=== PATIENT | female | born 1960 | race Caucasian/White ===

== ENCOUNTER 2017-03-17 11:03 | Observation (INO) | payer OTHER ==
--- NOTE | 2017-03-17 11:26 | ED PDOC ---
Arrival/HPI - General Historian: Patient - History of Present Illness Time/Duration: 1 week Symptom Onset: Gradual Symptom Course: Unchanged Quality: Aching, Pressure Severity Level: 7 Activities at Onset: Rest Context: Home <Alana Lubin - Last Filed: 03/17/17 14:10> <Mckenna Villa - Last Filed: 03/17/17 14:43> - General Chief Complaint: Chest Pain Time Seen by Provider: 03/17/17 11:08 - History of Present Illness Narrative History of Present Illness (Text): 03/17/17 11:27 This is a 57Y F with PMH of HTN, kidney stones, CAD s/p stents in 2015, and GERD who came to ED for chest pain x 1 week. She reports she was sitting at home when she began to have substernal chest pain. It is intermittent, but severe when it comes. It radiates to the R side of her chest. She does not know what makes it better or worse. She denies having any SOB, vision changes, numbness/tingling, headache, fever or chills. As per her daughter, she went to [facility] for 1 year and did not follow up with cardiology. She only follows up with her PMD as needed. The patient also complains of R sided back pain for the past week which has also been on and off and not associated with her chest pain. She thinks she has a kidney stone but denies dysuria, hematuria or urinary frequency. (Alana Lubin) Past Medical History - Provider Review Nursing Documentation Reviewed: Yes - Tetanus Immunization Tetanus Immunization: Unknown - Cardiac Hx Hypertension: Yes - Hematological/Oncological Hx Blood Transfusions: Yes Hx Blood Transfusion Reaction: No - Musculoskeletal/Rheumatological Hx Falls: No - Psychiatric Hx Substance Use: No - Past Surgical History Past Surgical History: Unable to Obtain - Anesthesia Hx Anesthesia Reactions: No Hx Malignant Hyperthermia: No - Suicidal Assessment Feels Threatened In Home Enviroment: No <Alana Lubin - Last Filed: 03/17/17 14:10> Family/Social History - Physician Review Nursing Documentation Reviewed: Yes Family/Social History: Hypertension Smoking Status: Never Smoked Hx Alcohol Use: No Hx Substance Use: No <Alana Lubin - Last Filed: 03/17/17 14:10> Allergies/Home Meds <Alana Lubin - Last Filed: 03/17/17 14:10> <Mckenna Villa - Last Filed: 03/17/17 14:43> Allergies/Adverse Reactions: Allergies No Known Allergies Allergy (Verified 03/17/17 11:22) Home Medications: Home Meds Medication Instructions Recorded Confirmed Naproxen [Naprosyn] 500 mg PO PRN PRN 03/17/17 03/17/17 Pantoprazole Sodium [Protonix] 40 mg PO DAILY 03/17/17 03/17/17 amLODIPine [Norvasc] 5 mg PO DAILY 03/17/17 03/17/17 raNITIdine [Zantac Soln 5ml] 15 mg PO BID 03/17/17 03/17/17 Review of Systems - Physician Review All systems were reviewed & negative as marked: Yes - Review of Systems Constitutional: Normal. absent: Fevers Eyes: Normal. absent: Vision Changes Respiratory: Normal. absent: SOB, Cough, Sputum Cardiovascular: Chest Pain. absent: Palpitations, Edema Gastrointestinal: Normal. absent: Abdominal Pain, Constipation, Diarrhea, Nausea, Vomiting Genitourinary Female: Normal. absent: Dysuria, Frequency, Hematuria Musculoskeletal: Back Pain Skin: Normal. absent: Rash, Pruritis Neurological: Normal. absent: Headache, Dizziness Endocrine: Normal. absent: Diaphoresis, Polyuria, Polydipsia Psychiatric: Normal. absent: Anxiety, Depression <Alana Lubin - Last Filed: 03/17/17 14:10> Physical Exam Vital Signs Reviewed: Yes Temperature: Afebrile Blood Pressure: Normal Pulse: Regular Respiratory Rate: Normal Appearance: Positive for: Well-Appearing, Non-Toxic, Comfortable Pain Distress: None Mental Status: Positive for: Alert and Oriented X 3 - Systems Exam Head: Present: Atraumatic, Normocephalic Pupils: Present: PERRL Extroacular Muscles: Present: EOMI Conjunctiva: Present: Normal Mouth: Present: Moist Mucous Membranes Neck: Present: Normal Range of Motion Respiratory/Chest: Present: Clear to Auscultation, Good Air Exchange. No: Respiratory Distress, Accessory Muscle Use Cardiovascular: Present: Regular Rate and Rhythm, Normal S1, S2. No: Murmurs Abdomen: Present: Normal Bowel Sounds. No: Tenderness, Distention, Peritoneal Signs Back: Present: Normal Inspection Upper Extremity: Present: Normal Inspection. No: Cyanosis, Edema Lower Extremity: Present: Normal Inspection. No: Edema Neurological: Present: GCS=15, CN II-XII Intact, Speech Normal Skin: Present: Warm, Dry, Normal Color. No: Rashes Psychiatric: Present: Alert, Oriented x 3, Normal Insight, Normal Concentration <Natepedro luisAlana gary - Last Filed: 03/17/17 14:10> <Mckenna Villa - Last Filed: 03/17/17 14:43> Vital Signs Temp Pulse Resp BP Pulse Ox 03/17/17 13:03 82 18 140/87 100 03/17/17 11:03 98.2 F 80 18 143/90 94 L Medical Decision Making Re-evaluation Time: 12:35 Reassessment Condition: Unchanged - Lab Interpretations I have reviewed the lab results: Yes Interpretation: Abnormal lab values (U/A positive for blood) - EKG Interpretation Interpreted by ED Physician: Yes Type: 12 lead EKG Comparison: Similar to previous EKG <Alana Lubin - Last Filed: 03/17/17 14:10> <Mckenna Villa Clementina - Last Filed: 03/17/17 14:43> ED Course and Treatment: 03/17/17 11:35 Impression: DDX: chest pain r/o ACS. back pain r/o kidney stone Plan: -- EKG -- ASA -- CXR -- CBC, CMP, Cardiac ISO, U/A -- Reassess and disposition Prior Visits: Notes and results from previous visits were reviewed. Progress Note: 03/17/17 11:47 CXR Impression: no pneumothorax, no cardiomegaly, no infiltrates EKG: Ordered, reviewed, and independently interpreted the EKG. Time Interpreted: 11:35 Rate: 76 BPM Rhythm: NSR Interpretation: No ST-segment elevations or depressions, no T-wave inversions, normal intervals. Comparison: Similar to previous EKG 03/17/17 12:36 CBC, CMP and troponin within normal limits. Patient noted to have positive U/A for blood. Will obtain CT abd/pelvis w/o contrast to r/o obstructing stone. 03/17/17 13:51 CT Abdomen and Pelvis without intravenous contrast HISTORY: R flank pain COMPARISON: None FINDINGS: LOWER THORAX: Unremarkable. LIVER: Unremarkable. No gross lesion or ductal dilatation. GALLBLADDER AND BILE DUCTS: Unremarkable. PANCREAS: Unremarkable. No gross lesion or ductal dilatation. SPLEEN: Unremarkable. ADRENALS: Unremarkable. No mass. KIDNEYS AND URETERS: Right lower pole renal calculus measuring 9 millimeters as well as additional punctate 1 millimeter calculus. Left lower pole renal cyst measuring 2.5 centimeters. VASCULATURE: Unremarkable. No aortic aneurysm. BOWEL: Unremarkable. No obstruction. No gross mural thickening. APPENDIX: Unremarkable. Normal appendix. PERITONEUM: Unremarkable. No free fluid. No free air. LYMPH NODES: Unremarkable. No enlarged lymph nodes. BLADDER: Unremarkable. REPRODUCTIVE: Unremarkable. BONES: No acute fracture. OTHER FINDINGS: 8 centimeter left lower quadrant cyst possibly representing a duplication cyst. IMPRESSION: Right lower pole renal calculus measuring 9 millimeters as well as additional punctate 1 millimeter calculus. Left lower pole renal cyst measuring 2.5 centimeters. No hydronephrosis.8 centimeter left lower quadrant cyst possibly representing a duplication cyst. 03/17/17 13:53 Patient will admitted to hospitalist service for chest pain r/o ACS and kidney stones. Spoke with Dr. Sherry Herman who accepted the patient into her service. (Alana Lubin) A 57 year old female with chest and back pain. In agreement with resident note, which includes further HPI details. Patient was seen and evaluated with resident , came up with plan and treatment together. Results as above. Spoke to hospitalist and will be transfered to tele observation for chest pain. (Mckenna Villa) - Lab Interpretations Lab Results: 03/17/17 11:15 03/17/17 11:17 Lab Results 03/17/17 11:44: Urine Color Yellow, Urine Appearance Sl cloudy, Urine pH 5.5, Ur Specific Freer >= 1.030, Urine Protein Negative, Urine Glucose (UA) Negative, Urine Ketones Negative, Urine Blood Large H, Urine Nitrate Negative, Urine Bilirubin Negative, Urine Urobilinogen 0.2, Ur Leukocyte Esterase Negative , Urine RBC Tntc, Urine WBC 0 - 2, Ur Epithelial Cells 4 - 5, Urine Bacteria Trace 03/17/17 11:17: Sodium 143, Potassium 3.7, Chloride 106, Carbon Dioxide 28, Anion Gap 13, BUN 19, Creatinine 0.8, Est GFR ( Amer) > 60, Est GFR (Non- Af Amer) > 60, Random Glucose 113 H, Calcium 10.0, Total Bilirubin 0.5, AST 29, ALT 28, Alkaline Phosphatase 97, Lactate Dehydrogenase 534, Total Creatine Kinase 81, Troponin I < 0.01 D, Total Protein 7.6, Albumin 4.2, Globulin 3.5, Albumin/Globulin Ratio 1.2 03/17/17 11:15: WBC 6.0, RBC 4.75, Hgb 13.8, Hct 41.5, MCV 87.4, MCH 29.1, MCHC 33.3, RDW 15.6 H, Plt Count 256, MPV 11.3 H - RAD Interpretation Radiology Orders: 03/17/17 11:23 CHEST PORTABLE [RAD] Stat 03/17/17 12:08 ABD & PELVIS W/O PO OR IV CONT [CT] Stat - Medication Orders Current Medication Orders: Discontinued Medications Aspirin (Ecotrin) 325 mg PO STAT STA Stop: 03/17/17 11:34 Last Admin: 03/17/17 11:58 Dose: 325 mg <Alana Lubin - Last Filed: 03/17/17 14:10> - PA / POLICY CHANGE CLERK / Resident Statement MD/DO has reviewed & agrees with the documentation as recorded. MD/DO has examined the patient and agrees with the treatment plan. - Scribe Statement The provider has reviewed the documentation as recorded by the Scribe <Mckenna Villa - Last Filed: 03/17/17 14:43> - Scribe Statement Irena Warner Provider Scribe Attestation: All medical record entries made by the Scribe were at my direction and personally dictated by me. I have reviewed the chart and agree that the record accurately reflects my personal performance of the history, physical exam, medical decision making, and the department course for this patient. I have also personally directed, reviewed, and agree with the discharge instructions and disposition. (Mckenna Villa) Disposition/Present on Arrival - Present on Arrival Any Indicators Present on Arrival: No History of DVT/PE: No History of Uncontrolled Diabetes: No Urinary Catheter: No History Surgical Site Infection Following: None - Disposition Have Diagnosis and Disposition been Completed?: Yes Disposition Time: 13:45 Patient Plan: Admission <Alana Lubin - Last Filed: 03/17/17 14:10> <Mckenna Villa - Last Filed: 03/17/17 14:43> - Disposition Diagnosis: Chest pain, Kidney stone Patient Problems: Current Active Problems Problem Status Onset Chest pain Acute Kidney stone Acute Condition: FAIR
[2017-03-17] MEDS ORDERED: Aspirin 325 mg EC Tablets PO STA (11:33)
[2017-03-17 11:34] LABS: HEMATOCRIT 41.5 % (36.0-48.0); MEAN CELL VOLUME 87.4 fl (80.0-105.0); MEAN CORPUSCULAR HEMOGLOBIN 29.1 pg (25.0-35.0); MEAN CORPUSCULAR HGB CONC 33.3 g/dl (31.0-37.0); MEAN PLATELET VOLUME 11.3 fl (7.0-11.0); RED CELL DISTRIBUTION WIDTH 15.6 % (11.5-14.5)
[2017-03-17 11:45] LABS: ALB/GLOB RATIO 1.2 (1.1-1.8); ALKALINE PHOSPHATASE 97 U/L (38-126); ALT/SGPT 28 U/L (7-56); AST/SGOT 29 U/L (14-36); BILIRUBIN,TOTAL 0.5 mg/dL (0.2-1.3); BLOOD UREA NITROGEN 19 mg/dL (7-21); CARBON DIOXIDE 28 mmol/L (21-33); CHLORIDE 106 mmol/L (98-107); GFR AFRICAN-AMERICAN > 60; GLUCOSE,RANDOM 113 mg/dL (70-110); SODIUM 143 mmol/L (132-148); TOTAL PROTEIN 7.6 g/dL (5.8-8.3)
[2017-03-17 12:00] LABS: TROPONIN I < 0.01 ng/mL
[2017-03-17 12:01] LABS: POTASSIUM 3.7 mmol/L (3.6-5.0)
[2017-03-17 12:02] LABS: PH,URINE 5.5 (4.7-8.0); URINE BILIRUBIN NEGATIVE (NEGATIVE); URINE BLOOD LARGE (NEGATIVE); URINE GLUCOSE (UA) NEGATIVE (NEGATIVE); URINE KETONE NEGATIVE (NEGATIVE); URINE LEUKOCYTE ESTERASE NEGATIVE Leu/uL (NEGATIVE); URINE PROTEIN NEGATIVE mg/dL (<30 mg/dL); URINE UROBILINOGEN 0.2 E.U./dL (<1 E.U./dL)
[2017-03-17 12:03] LABS: URINE APPEARANCE SL CLOUDY (CLEAR); URINE COLOR YELLOW (YELLOW)
[2017-03-17 12:04] LABS: URINE BACTERIA TRACE (NEG); URINE RBC TNTC /hpf (0-2); URINE WBC 0 - 2 /hpf (0-6)
--- NOTE | 2017-03-17 13:44 | CT ---
PROCEDURE: CT Abdomen and Pelvis without intravenous contrast HISTORY: R flank pain COMPARISON: None. TECHNIQUE: Technique. Contrast Dose: Radiation dose: Total exam DLP = mGy-cm. This CT exam was performed using one or more of the following dose reduction techniques: Automated exposure control, adjustment of the mA and/or kV according to patient size, and/or use of iterative reconstruction technique. FINDINGS: LOWER THORAX: Unremarkable. LIVER: Unremarkable. No gross lesion or ductal dilatation. GALLBLADDER AND BILE DUCTS: Unremarkable. PANCREAS: Unremarkable. No gross lesion or ductal dilatation. SPLEEN: Unremarkable. ADRENALS: Unremarkable. No mass. KIDNEYS AND URETERS: Right lower pole renal calculus measuring 9 millimeters as well as additional punctate 1 millimeter calculus. Left lower pole renal cyst measuring 2.5 centimeters. VASCULATURE: Unremarkable. No aortic aneurysm. BOWEL: Unremarkable. No obstruction. No gross mural thickening. APPENDIX: Unremarkable. Normal appendix. PERITONEUM: Unremarkable. No free fluid. No free air. LYMPH NODES: Unremarkable. No enlarged lymph nodes. BLADDER: Unremarkable. REPRODUCTIVE: Unremarkable. BONES: No acute fracture. OTHER FINDINGS: 8 centimeter left lower quadrant cyst possibly representing a duplication cyst. IMPRESSION: Right lower pole renal calculus measuring 9 millimeters as well as additional punctate 1 millimeter calculus. Left lower pole renal cyst measuring 2.5 centimeters. No hydronephrosis.8 centimeter left lower quadrant cyst possibly representing a duplication cyst.
--- NOTE | 2017-03-17 14:06 | RAD ---
HISTORY: Chest pain COMPARISON: 11/23/2014. FINDINGS: LUNGS: The lungs are well inflated and clear. PLEURA: No significant pleural effusion identified, no pneumothorax apparent. CARDIOVASCULAR: Normal. OSSEOUS STRUCTURES: No significant abnormalities. VISUALIZED UPPER ABDOMEN: Normal. OTHER FINDINGS: None. IMPRESSION: No active pulmonary disease.
--- NOTE | 2017-03-17 16:49 | CP.PCM.HP ---
<Jennifer Villalobos - Last Filed: 03/17/17 17:32> History of Present Illness - History of Present Illness History of Present Illness: PGY-2 H&P 57 yo female with PMH of HTN, kidney stones, CAD s/p stents in 2014, and GERD who came to ED for chest pain for the past 1 week. She reports she was sitting at home when she began to have substernal chest pain. She describes the pain as intermittent, but severe when it comes. It radiates to the right side of her chest down to her abdomen. She does not know if anything makes it better or worse. She denies having any SOB, vision changes, numbness,tingling, swelling, headache, fever or chills. 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 She only follows up with her PMD as needed. The patient also complains of right sided back pain for the past week which has also been on and off and not associated with her chest pain. She thinks she has a kidney stone but denies dysuria, hematuria or urinary frequency. PMH: HTN, kidney stones, arthritis, CAD s/p stents, and GERD PSH: cardiac stent in 2014, c- section family hx: denies social hx: denies smoking, alcohol use, illicit drug use allergy: NKDA Present on Admission - Present on Admission Any Indicators Present on Admission: No Review of Systems - Constitutional Constitutional: Headache. absent: Fever, Lethargy, Weakness - EENT Eyes: absent: Change in Vision Nose/Mouth/Throat: absent: Nasal Congestion, Sore Throat - Cardiovascular Cardiovascular: Chest Pain, Chest Pain at Rest, Radiating Pain. absent: Dyspnea , Palpitations, Pedal Edema - Respiratory Respiratory: absent: Cough, Dyspnea, Hemoptysis, Wheezing - Gastrointestinal Gastrointestinal: Abdominal Pain, Heartburn. absent: Constipation, Diarrhea, Nausea, Vomiting - Genitourinary Genitourinary: Flank Pain. absent: Difficulty Urinating, Dysuria, Hematuria - Musculoskeletal Musculoskeletal: Arthralgias. absent: Muscle Weakness, Numbness, Tingling - Integumentary Integumentary: absent: Rash, Skin Ulcer, Sores, Wounds, Jaundice - Neurological Neurological: absent: Dizziness, Numbness, Focal Weakness, Syncope, Weakness - Hematologic/Lymphatic Hematologic: absent: Easy Bleeding, Easy Bruising Past Patient History - Infectious Disease Hx of Infectious Diseases: None - Tetanus Immunizations Tetanus Immunization: Unknown - Past Social History Smoking Status: Never Smoked - CARDIAC Hx Hypertension: Yes - HEMATOLOGICAL/ONCOLOGICAL Hx Blood Transfusions: Yes Hx Blood Transfusion Reaction: No - MUSCULOSKELETAL/RHEUMATOLOGICAL Hx Falls: No - PSYCHIATRIC Hx Substance Use: No - SURGICAL HISTORY Hx Surgeries: No Hx Section: Yes (x1) Hx Coronary Stent: Yes (Pt thinks she has 2) - ANESTHESIA Hx Anesthesia Reactions: No Hx Malignant Hyperthermia: No Meds Allergies/Adverse Reactions: Allergies Allergy/AdvReac Type Severity Reaction Status Date / Time No Known Allergies Allergy Verified 03/17/17 11:22 Physical Exam - Constitutional Appears: No Acute Distress - Head Exam Head Exam: ATRAUMATIC, NORMOCEPHALIC - Eye Exam Eye Exam: EOMI, Normal appearance - ENT Exam ENT Exam: Mucous Membranes Moist - Respiratory Exam Respiratory Exam: Clear to Auscultation Bilateral, NORMAL BREATHING PATTERN. absent: Decreased Breath Sounds, Rales, Rhonchi, Wheezes, Respiratory Distress - Cardiovascular Exam Cardiovascular Exam: REGULAR RHYTHM, +S1, +S2. absent: Tachycardia, Diastolic murmur, Systolic Murmur Additional comments: chest wall tenderness - GI/Abdominal Exam GI & Abdominal Exam: Normal Bowel Sounds, Soft, Tenderness (upper quadrants ). absent: Distended, Firm - Extremities Exam Extremities exam: Positive for: normal inspection. Negative for: pedal edema, tenderness - Neurological Exam Neurological exam: Alert, Oriented x3 - Skin Skin Exam: Dry, Intact, Normal Color, Warm Results - Vital Signs Recent Vital Signs: Last Vital Signs Temp 98.2 F 03/17/17 11:03 Pulse 76 03/17/17 16:16 Resp 17 03/17/17 16:16 BP 141/88 03/17/17 16:16 Pulse Ox 96 03/17/17 16:16 - Labs Result Diagrams: 03/17/17 11:15 03/17/17 11:17 Assessment & Plan - Assessment and Plan (Free Text) Assessment: 57 yo female with PMH of HTN, kidney stones, CAD s/p stents in 2014, and GERD who came to ED for chest pain for the past 1 week. Plan: 1. chest pain - r/o acs - trops neg x 1 - trend trops - echo, last echo in 2014 - d- dimer - cont home meds, asa, lipitor - start Lopressor - cardiology consult 2. nephrolithisis - CT abd/pel showed Right lower pole renal calculus measuring 9 mm and 1 mm calculus. Left lower pole renal cyst (2.5 cm). No hydronephrosis. - follow up outpatient urology 3. HTN - cont home meds norvasc - started Lopressor ppx - DVT & GI <Liam CARTER,Bubba - Last Filed: 03/17/17 18:21> Results - Vital Signs Recent Vital Signs: Last Vital Signs Temp 98 F 03/17/17 18:10 Pulse 82 03/17/17 18:10 Resp 20 03/17/17 18:10 BP 160/107 H 03/17/17 18:10 Pulse Ox 96 03/17/17 18:10 - Labs Result Diagrams: 03/17/17 11:15 03/17/17 11:17 Attending/Attestation - Attestation I have personally seen and examined this patient.: Yes I have fully participated in the care of the patient.: Yes I have reviewed all pertinent clinical information: Yes Notes (Text): 03/17/17 18:18 Patient was seen and examined with medical psychotherapist. 57 yo female with PMH of CAD, sp NSEMI followed by RCA and circumflex A stenting 2016, HTN, kidney stones, and GERD is admitted with chest pain, has chest wall tenderness, EKG showed old lateral wall IL, no acute ischemic changes , due to risk factor, wew ill admit patient in telemetry, will get serial cardiac enzyme and will get cardiology evaluation. Management plan was discussed in detail with patient Education was provided.
[2017-03-17] MEDS ORDERED: Nitroglycerin 0.6 mg SL Tab SL ONE (18:10)
[2017-03-17 18:42] LABS: TROPONIN I < 0.01 ng/mL
[2017-03-17] MEDS: Naproxen 550 mg Tab PO PRN (20:45)
--- NOTE | 2017-03-17 20:51 | CARD ---
APPROVED REPORT EKG Measurement Heart [id number] <Conclusion> Normal sinus rhythm Voltage criteria for left ventricular hypertrophy Nonspecific T wave abnormality Abnormal ECG
[2017-03-17 23:39] VITALS: BMI 33.3
[2017-03-18 01:54] LABS: TROPONIN I < 0.01 ng/mL
[2017-03-18 05:38] LABS: BASO # 0.03 K/mm3 (0.0-2.0); BASO % 0.7 % (0.0-3.0); EOS # 0.2 (0.0-0.7); GRAN # 1.55 (1.4-6.5); GRAN % 34.3 % (50.0-68.0); LYMPH # 2.5 (1.2-3.4); LYMPH % 55.5 % (22.0-35.0); MEAN CELL VOLUME 86.9 fl (80.0-105.0); MEAN CORPUSCULAR HEMOGLOBIN 28.4 pg (25.0-35.0); MEAN CORPUSCULAR HGB CONC 32.7 g/dl (31.0-37.0); MEAN PLATELET VOLUME 11.1 fl (7.0-11.0); MONO # 0.3 (0.1-0.6); MONO % 5.5 % (1.0-6.0); RED CELL DISTRIBUTION WIDTH 15.6 % (11.5-14.5); WHITE BLOOD COUNT 4.5 10^3/ul (4.5-11.0)
[2017-03-18 06:58] LABS: ALB/GLOB RATIO 1.1 (1.1-1.8); ALKALINE PHOSPHATASE 106 U/L (38-126); ALT/SGPT 25 U/L (7-56); AST/SGOT 29 U/L (14-36); BILIRUBIN,TOTAL 0.6 mg/dL (0.2-1.3); BLOOD UREA NITROGEN 16 mg/dL (7-21); CALCIUM 9.9 mg/dL (8.4-10.5); CARBON DIOXIDE 28 mmol/L (21-33); CHLORIDE 105 mmol/L (95-110); GFR AFRICAN-AMERICAN > 60; GLUCOSE,RANDOM 82 mg/dL (70-110); POTASSIUM 3.6 mmol/L (3.6-5.0); SODIUM 143 mmol/L (132-148); TOTAL PROTEIN 7.7 g/dL (5.8-8.3)
[2017-03-18] MEDS ORDERED: Iodixanol 320 MG/ML 100 ML BOTTLE IV ONE (09:28)
--- NOTE | 2017-03-18 10:25 | CT ---
PROCEDURE: CT Chest with contrast (Pulmonary Angiogram) HISTORY: Rule out Pulmonary embolism COMPARISON: None available. TECHNIQUE: Axial computed tomography images were obtained of the chest in the pulmonary arterial phase of enhancement. Coronal and sagittal reformatted images were created and reviewed. Intravenous contrast dose: 100 cc Visipaque 320 contrast material. . Radiation dose: Total exam DLP = 860. 06 mGy-cm. This CT exam was performed using one or more of the following dose reduction techniques: Automated exposure control, adjustment of the mA and/or kV according to patient size, and/or use of iterative reconstruction technique. FINDINGS: PULMONARY ARTERIES: The visualized pulmonary trunk, right and left main, lobar, segmental and subsegmental branches of the pulmonary arteries are well opacified with no definitive filling defects seen to suggest central pulmonary embolus. The pulmonary trunk measures approximately 2.8 cm. There is mild IA AORTA: There is mild dilatation of the ascending thoracic aorta measuring approximately 3.77 cm in transverse dimension. Descending thoracic aorta measures approximately 3.0 cm. LUNGS: Mild passive type atelectasis both posterior lung mai. Some minor scarring changes also seen in the lingular region. No evidence of parenchymal nodule. . PLEURAL SPACES: As above. No evidence of pneumothorax HEART: Heart is enlarged with left ventricular hypertrophy. No significant pericardial effusion. LYMPH NODES: No significant mediastinal or hilar adenopathy. Central airways are midline and patent. No endobronchial lesion seen. There is a tiny hiatal hernia with slight wall thickening of the distal esophagus that is likely due to protrusion of gastric mucosa. Possibility of esophagitis not excluded. BONES, CHEST WALL: Mild multilevel degenerative spondylosis of the thoracic spine. There are no acute compression fractures no retropulsed fragments. No cortical destructive changes are identified. OTHER FINDINGS: Unremarkable. IMPRESSION: No evidence of acute central pulmonary embolus. Cardiomegaly with left ventricular hypertrophy. Mild dilatation of the ascending thoracic aorta.
--- NOTE | 2017-03-18 11:48 | US ---
HISTORY: Leg pain and swelling. Evaluate for DVT PHYSICIAN(S): Wing Man MD. TECHNIQUE: Duplex sonography and color-flow Doppler with graded compression were used to evaluate the deep venous systems of both lower extremities. FINDINGS: The visualized deep venous systems of both lower extremities are sonographically normal and compressible. Normal wave forms and augmentation are seen. There is no sonographic evidence for deep venous thrombosis in the visualized segments of both lower extremities. IMPRESSION: No sonographic evidence for deep venous thrombosis in the visualized segments of both lower extremities.
[2017-03-18] MEDS: Enoxaparin 40 mg Syringe SC SCH (12:04)
[2017-03-18] MEDS: Pantoprazole 40 mg EC Tab PO SCH (12:05)
[2017-03-18] MEDS: Naproxen 550 mg Tab PO PRN ×2 (16:15→20:43)
--- NOTE | 2017-03-18 19:07 | CP.PCM.PN ---
<Gus Juárez - Last Filed: 03/18/17 19:07> Subjective - Date & Time of Evaluation Date of Evaluation: 03/18/17 Time of Evaluation: 10:05 - Subjective Subjective: Patient was seen and examined at bedside. The patient reports the same sternal pain as today. She denies any shortness of breath, nausea, vomiting, fevers, chills, abdominal pain, dysuria, syncopal episodes, changes in vision, or any other complaints. Objective - Vital Signs/Intake and Output Vital Signs (last 24 hours): Temp Pulse Resp BP Pulse Ox 98.3 F 62 18 125/77 95 03/18/17 18:00 03/18/17 18:00 03/18/17 18:00 03/18/17 18:00 03/18/17 06:00 - Medications Medications: Current Medications Amlodipine Besylate (Norvasc) 5 mg PO DAILY [facility] Last Admin: 03/18/17 12:07 Dose: 5 mg Aspirin (Ecotrin) 81 mg PO DAILY [facility] Last Admin: 03/18/17 12:05 Dose: 81 mg Atorvastatin Calcium (Lipitor) 20 mg PO DIN [facility] Last Admin: 03/18/17 17:44 Dose: 20 mg Enoxaparin Sodium (Lovenox) 40 mg SC DAILY [facility] PRN Reason: Protocol Last Admin: 03/18/17 12:04 Dose: 40 mg Famotidine (Pepcid) 20 mg PO BID [facility] Last Admin: 03/18/17 17:44 Dose: 20 mg Metoprolol Tartrate (Lopressor) 50 mg PO BID [facility] Last Admin: 03/18/17 17:44 Dose: 50 mg Naproxen (Anaprox Ds) 550 mg PO Q12 PRN PRN Reason: Pain, Mild-MODERATE (1-7) Last Admin: 03/18/17 16:15 Dose: 550 mg Pantoprazole Sodium (Protonix Ec Tab) 40 mg PO DAILY [facility] Last Admin: 03/18/17 12:05 Dose: 40 mg - Labs Labs: 03/18/17 04:30 03/18/17 04:30 - Head Exam Head Exam: ATRAUMATIC, NORMAL INSPECTION, NORMOCEPHALIC - Eye Exam Eye Exam: EOMI, Normal appearance, PERRL Pupil Exam: NORMAL ACCOMODATION, PERRL. absent: Irregular - ENT Exam ENT Exam: Mucous Membranes Moist - Neck Exam Neck Exam: Full ROM, Normal Inspection. absent: Thyromegaly - Respiratory Exam Respiratory Exam: Chest Wall Tenderness, Clear to Ausculation Bilateral, NORMAL BREATHING PATTERN. absent: Respiratory Distress - Cardiovascular Exam Cardiovascular Exam: REGULAR RHYTHM, RRR, +S1, +S2. absent: Gallop, Rubs - GI/Abdominal Exam GI & Abdominal Exam: Soft, Normal Bowel Sounds - Neurological Exam Neurological Exam: Alert, CN II-XII Intact - Psychiatric Exam Psychiatric exam: Normal Affect, Normal Mood - Skin Skin Exam: Dry, Intact Assessment and Plan - Assessment and Plan (Free Text) Assessment: 57 yo female with PMH of HTN, kidney stones, CAD s/p stents in 2015, and GERD who came to ED for chest pain for the past 1 week. Plan: 1. Chest pain - r/o acs - trops neg x3 - trend trops - echo, last echo in 2014. Echo still pending. Will f/u with rec's in the morning. - D-Dimer elevated, however u/s of legs were negative. - Continue home meds, asa, lipitor - Continue Lopressor - cardiology consult pending. F/u with rec's in the morning. 2. Nephrolithiasis. - CT abd/pel showed Right lower pole renal calculus measuring 9 mm and 1 mm calculus. Left lower pole renal cyst (2.5 cm). No hydronephrosis. - follow up outpatient urology 3. HTN - cont home meds norvasc - started Lopressor GI PPX: -Continue Protonix DVT PPX: -Continue SCD's <Liam CARTER,Bubba - Last Filed: 03/20/17 13:56> Objective - Vital Signs/Intake and Output Vital Signs (last 24 hours): Temp Pulse Resp BP Pulse Ox 98.3 F 57 L 20 140/90 99 03/19/17 06:00 03/19/17 10:00 03/19/17 06:00 03/19/17 09:48 03/19/17 06:00 - Labs Labs: 03/18/17 04:30 03/18/17 04:30 Attending/Attestation - Attestation I have personally seen and examined this patient.: Yes I have fully participated in the care of the patient.: Yes I have reviewed all pertinent clinical information, including history, physical exam and plan: Yes Notes (Text): 03/20/17 13:55 Patient was seen and examined with medical equipment repair technician. 57 yo female with PMH of CAD, sp NSEMI followed by RCA and circumflex A stenting 2016, HTN, kidney stones, and GERD is admitted with chest pain, has chest wall tenderness, EKG showed old lateral wall NE, no acute ischemic changes.Patient was monitored in telemetry, serial troponins are normal. CT angio chest is negative for Pulmonary embolism Venous Doppler is negative for DVT. We will follow up Echo, Cardiology evaluation is appreciated Management plan was discussed in detail with patient Education was provided.
--- NOTE | 2017-03-18 22:19 | CARD ---
APPROVED REPORT EXAM: Two-dimensional and M-mode echocardiogram with Doppler and color Doppler. INDICATION Chest Pain H/O CARDIAC STENTS 2D DIMENSIONS Left Atrium (2D)3.8 (1.6-4.0cm)IVSd1.4 (0.7-1.1cm) LVDd3.8 (3.9-5.9cm)PWd1.3 (0.7-1.1cm) LVDs2.5 (2.5-4.0cm)FS (%) 33.9 % LVEF (%)63.5 (>50%) M-Mode DIMENSIONS Aortic Root3.00 (2.2-3.7cm)Aortic Cusp Exc.1.70 (1.5-2.0cm) Aortic Valve AoV Peak Nnufpqzz446.0cm/Cesar Peak GR.13mmHgLVOT Peak Exzbicbu726.0cm/s LVOT VTI35.00cm Mitral Valve MV E Khlfbiwy57.3cm/sMV A Bgavflqa24.3cm/sE/A ratio0.6 TDI Lateral E' Peak V5.46cm/sMedial E' Peak V4.00cm/sE/Lateral E'10.3 E/Medial E'14.1 Pulmonary Valve PV Peak Ttivtnxq90.1cm/sPV Peak Grad.2mmHg Tricuspid Valve TR Peak Pediojcr612yi/sRAP MXPCTQAN80crDrNM Peak Gr.10mmHg CQRB94iuVm LEFT VENTRICLE The left ventricle is normal size. There is mild to moderate concentric left ventricular hypertrophy. The left ventricular function is normal. The left ventricular ejection fraction is within the normal range. There is normal LV segmental wall motion. Transmitral Doppler flow pattern is Grade I-abnormal relaxation pattern. RIGHT VENTRICLE The right ventricle is normal size. There is normal right ventricular wall thickness. The right ventricular systolic function is normal. ATRIA The left atrium size is normal. The right atrium size is normal. AORTIC VALVE The aortic valve is mildly sclerotic. There is trace aortic regurgitation. There is trace valvular aortic stenosis. MITRAL VALVE The mitral valve is mildly thickened. There is no mitral valve regurgitation noted. TRICUSPID VALVE There is no tricuspid valve regurgitation noted. GREAT VESSELS The aortic root displays mild to moderate sclerocalcific changes of the aortic root. The IVC is normal in size and collapses >50% with inspiration. PERICARDIAL EFFUSION There is a trace loculated anterior pericardial effusion. <Conclusion> The left ventricle is normal size. There is mild to moderate concentric left ventricular hypertrophy. The left ventricular function is normal. The left ventricular ejection fraction is within the normal range. There is normal LV segmental wall motion. Transmitral Doppler flow pattern is Grade I-abnormal relaxation pattern. The aortic valve is mildly sclerotic.
--- NOTE | 2017-03-18 22:36 | CON ---
DATE: REASON FOR CONSULTATION: Chest pain. HISTORY OF PRESENT ILLNESS: The patient is a 57 years old, moderately obese, female, from [place], who has history of hypertension, has history of coronary artery disease, underwent stenting to circumflex in 2012. At that time, she was also found to have right coronary disease and she was recommended staged angioplasty following intervention, but the patient does not recall presenting to any lead injection mold technician or any other hospital after that. The patient has done well and she presented because of sharp chest pain just located to the right sternal border, not radiating. The patient denies any associated diaphoresis or dizziness. The patient has history of kidney stones. SOCIAL HISTORY: Nonsmoker and nondrinker. MEDICATIONS: Anaprox 550 mg q. 12 hours p.r.n. aspirin 81 once daily, Lipitor 20 mg once a day, Lopressor 12.5 mg twice a day, Lovenox 40 mg subcutaneous once a day, Norvasc 5 mg once a day, Zestril 20 mg p.o. twice a day, Protonix 40 mg p.o. once a day. REVIEW OF SYSTEMS: No nausea or vomiting. No hematuria. The patient did report blood tinged sputum. PHYSICAL EXAMINATION GENERAL: The patient is middle aged female who does not appear to be in acute distress. VITAL SIGNS: Blood pressure 156/92, heart rate 59, temperature 98.3, respirations 19. HEENT: Normocephalic. CHEST: Clear. HEART: S1 and S2 regular. ABDOMEN: Soft. EXTREMITIES: No edema. LABORATORY DATA: Hemoglobin, hematocrit, white count and platelet count are within normal limit. SMA-7 is within normal limits. Three sets of troponins are within normal limit. D-dimer 0.95. CT angio of the chest, no evidence of pulmonary embolism, mild dilatation of the ascending thoracic aorta. Venous Doppler of the lower extremity and no sonographic evidence of DVT. Abdomen and pelvis CT scan reviewed right lower pole renal calculus measuring 9 mm as well as additional calculus. Left lower pole renal cyst measuring 2.5 cm. No hydronephrosis. 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 Although the size may be questionable. ASSESSMENT: 1. Atypical chest pain, myocardial infarction is ruled out. 2. Hypertension. 3. Mildly dilated thoracic aorta. 4. Renal calculi. 5. History of coronary disease with circumflex stenting in 2014 and known right coronary artery disease at that time. RECOMMENDATIONS: Continue current medical management. Optimize blood pressure control. Continue aspirin 81 mg once a day, Lipitor 20 mg once a day, increase Lopressor to 50 mg twice a day, continue Norvasc 5 mg once a day. I would review echo cardiac study and if unremarkable the patient can be continued on medical therapy after discharge. The patient has a physician as an outpatient, his name is Dr. Perry. At this time, the patient has no typical chest pain. No acute ischemic EKG changes and no cardiac intervention will be considered at this time. Chuck Griffith MD
[2017-03-19 06:31] VITALS: RESP 20; TEMP 98.3; O2SAT 99
[2017-03-19] MEDS: Pantoprazole 40 mg EC Tab PO SCH (09:49)
[2017-03-19 09:50] VITALS: BP 140/90
[2017-03-19] MEDS: Naproxen 550 mg Tab PO PRN (09:50)
[2017-03-19] MEDS: Enoxaparin 40 mg Syringe SC SCH (09:50)
[2017-03-19 12:26] VITALS: PULSE 57
--- NOTE | 2017-03-19 12:35 | CP.PCM.DIS ---
<[place] - Last Filed: 03/19/17 12:38> Provider - Provider Date of Admission: 03/17/17 13:46 Attending physician: Bubba Wheeler MD Primary care physician: NO PRIMARY CARE PROVIDER Time Spent in preparation of Discharge (in minutes): 45 Hospital Course - Lab Results Lab Results: Most Recent Lab Values WBC 4.5 10^3/ul (4.5-11.0) D 03/18/17 04:30 RBC 4.72 10^6/uL (3.5-6.1) 03/18/17 04:30 Hgb 13.4 g/dL (12.0-16.0) 03/18/17 04:30 Hct 41.0 % (36.0-48.0) 03/18/17 04:30 MCV 86.9 fl (80.0-105.0) 03/18/17 04:30 MCH 28.4 pg (25.0-35.0) 03/18/17 04:30 MCHC 32.7 g/dl (31.0-37.0) 03/18/17 04:30 RDW 15.6 % (11.5-14.5) H 03/18/17 04:30 Plt Count 247 10^3/uL (120.0-450.0) 03/18/17 04:30 MPV 11.1 fl (7.0-11.0) H 03/18/17 04:30 Gran % 34.3 % (50.0-68.0) L 03/18/17 04:30 Lymph % (Auto) 55.5 % (22.0-35.0) H 03/18/17 04:30 [place] % (Auto) 5.5 % (1.0-6.0) 03/18/17 04:30 Eos % (Auto) 4.0 % (1.5-5.0) 03/18/17 04:30 Baso % (Auto) 0.7 % (0.0-3.0) 03/18/17 04:30 Gran # 1.55 (1.4-6.5) 03/18/17 04:30 Lymph # 2.5 (1.2-3.4) 03/18/17 04:30 [place] # 0.3 (0.1-0.6) 03/18/17 04:30 Eos # 0.2 (0.0-0.7) 03/18/17 04:30 Baso # 0.03 K/mm3 (0.0-2.0) 03/18/17 04:30 D-Dimer, Quantitative 0.95 mg/L FEU (0-0.50) H 03/17/17 17:55 Sodium 143 mmol/L (132-148) 03/18/17 04:30 Potassium 3.6 mmol/L (3.6-5.0) 03/18/17 04:30 Chloride 105 mmol/L (95-110) 03/18/17 04:30 Carbon Dioxide 28 mmol/L (21-33) 03/18/17 04:30 Anion Gap 14 (10-20) 03/18/17 04:30 BUN 16 mg/dL (7-21) 03/18/17 04:30 Creatinine 0.8 mg/dL (0.5-1.4) 03/18/17 04:30 Est GFR ( Amer) > 60 03/18/17 04:30 Est GFR (Non-Af Amer) > 60 03/18/17 04:30 Random Glucose 82 mg/dL (70-110) 03/18/17 04:30 Calcium 9.9 mg/dL (8.4-10.5) 03/18/17 04:30 Total Bilirubin 0.6 mg/dL (0.2-1.3) 03/18/17 04:30 AST 29 U/L (14-36) 03/18/17 04:30 ALT 25 U/L (7-56) 03/18/17 04:30 Alkaline Phosphatase 106 U/L (38-126) 03/18/17 04:30 Lactate Dehydrogenase 460 U/L (333-699) 03/18/17 00:30 Total Creatine Kinase 76 U/L (35-230) 03/18/17 00:30 Troponin I < 0.01 ng/mL 03/18/17 00:30 Total Protein 7.7 g/dL (5.8-8.3) 03/18/17 04:30 Albumin 4.0 g/dL (3.0-4.8) 03/18/17 04:30 Globulin 3.7 gm/dL 03/18/17 04:30 Albumin/Globulin Ratio 1.1 (1.1-1.8) 03/18/17 04:30 Urine Color Yellow (YELLOW) 03/17/17 11:44 Urine Appearance Sl cloudy (CLEAR) 03/17/17 11:44 Urine pH 5.5 (4.7-8.0) 03/17/17 11:44 Ur Specific [place] >= 1.030 (1.005-1.035) 03/17/17 11:44 Urine Protein Negative mg/dL (<30 mg/dL) 03/17/17 11:44 Urine Glucose (UA) Negative mg/dL (NEGATIVE) 03/17/17 11:44 Urine Ketones Negative mg/dL (NEGATIVE) 03/17/17 11:44 Urine Blood Large (NEGATIVE) H 03/17/17 11:44 Urine Nitrate Negative (NEGATIVE) 03/17/17 11:44 Urine Bilirubin Negative (NEGATIVE) 03/17/17 11:44 Urine Urobilinogen 0.2 E.U./dL (<1 E.U./dL) 03/17/17 11:44 Ur Leukocyte Esterase Negative Dominick/uL (NEGATIVE) 03/17/17 11:44 Urine RBC Tntc /hpf (0-2) 03/17/17 11:44 Urine WBC 0 - 2 /hpf (0-6) 03/17/17 11:44 Ur Epithelial Cells 4 - 5 /hpf (0-5) 03/17/17 11:44 Urine Bacteria Trace (NEG) 03/17/17 11:44 - Hospital Course Hospital Course: This is a 57 year old female with PMH of HTN, kidney stones, CAD s/p stents in 2014, and GERD who came to ED for chest pain for the past 1 week. She reports she was sitting at home when she began to have substernal chest pain. She describes the pain as intermittent, but severe when it comes. It radiates to the right side of her chest down to her abdomen. She does not know if anything makes it better or worse. She denies having any SOB, vision changes, numbness, tingling, swelling, headache, fever or chills. Patient has not followed up with director safety council since she had the stents placed 2 years ago. She only follows up with her PMD as needed. The patient also complains of right sided back pain for the past week which has also been on and off and not associated with her chest pain. She thinks she has a kidney stone but denies dysuria, hematuria or urinary frequency. While in the emergency department the patient was given aspirin and also had a chest xray done and ct of abdomen and pelvis done which showed a right lower pole renal calculus, 9mm, an additional punctate 1mm calculus, a left lower pole renal cyst measuring 2.5 cm, and a 8cc lower left quadrant cyst. Patient was admitted to telemetry for observation. While in Telemetry patient was seen by Cardio and had an ECHO done. The ECHO came back normal and Cardiology said there was no intervention required inpatient at this time and that she could follow up as an outpatient. An appointment was made in the [facility] for March 28, 2017 for her to establish care and follow up with a PMD and Social Science Manager. The patient was discharged. Discharge Exam - Head Exam Head Exam: ATRAUMATIC, NORMAL INSPECTION, NORMOCEPHALIC - Eye Exam Eye Exam: EOMI, Normal appearance, PERRL Pupil Exam: NORMAL ACCOMODATION, PERRL - Respiratory Exam Respiratory Exam: Clear to PA & Lateral, NORMAL BREATHING PATTERN. absent: Chest Wall Tenderness, Wheezes - Cardiovascular Exam Cardiovascular Exam: REGULAR RHYTHM, RRR, +S1, +S2. absent: Gallop, Rubs - GI/Abdominal Exam GI & Abdominal Exam: Normal Bowel Sounds - Extremities Exam Extremities exam: full ROM - Back Exam Back exam: NORMAL INSPECTION. absent: CVA tenderness (L), CVA tenderness (R), paraspinal tenderness - Neurological Exam Neurological exam: Alert, CN II-XII Intact, Oriented x3 - Psychiatric Exam Psychiatric exam: Normal Affect, Normal Mood - Skin Skin Exam: Dry, Intact Discharge Plan - Discharge Medications Prescriptions: amLODIPine [Norvasc] 5 mg PO DAILY #30 tab Aspirin [Ecotrin] 81 mg PO DAILY #30 tabec Atorvastatin [Lipitor] 20 mg PO DIN #30 tab Metoprolol Tartrate [Lopressor] 50 mg PO BID #60 tab - Follow Up Plan Condition: FAIR Disposition: HOME/ ROUTINE Instructions: Chest Pain (DC), Kidney Stones (DC) Additional Instructions: 1. Follow up with primary care doctor in 3-5 days 2. Follow up with cardiology within 1 week 3. Follow up with urology outpatient for non obstructing kidney stone 4. If new or worsening symptoms return to nearest ED 5. Scheduled the patient an appointment with the [facility] on the 1st floor for March 28, 2017 at 10 A.M. to establish care and follow up with a Social Science Manager. 6. Patient discharged with a months worth of aspirin, lipitor, Norvasc, and Lopressor. Nursing If you begin to experience chest pain, shortness of breath, symptoms return or any changes, return to the emergency room or call 911. See care notes provided for further instructions. Referrals: PCP,JOSEY [Primary Care Provider] - <Bubba Wheeler MD - Last Filed: 03/20/17 13:59> Provider - Provider Date of Admission: 03/17/17 13:46 Attending physician: Bubba Wheeler MD Primary care physician: JOSEY PRIMARY CARE PROVIDER Hospital Course - Lab Results Lab Results: Most Recent Lab Values WBC 4.5 10^3/ul (4.5-11.0) D 03/18/17 04:30 RBC 4.72 10^6/uL (3.5-6.1) 03/18/17 04:30 Hgb 13.4 g/dL (12.0-16.0) 03/18/17 04:30 Hct 41.0 % (36.0-48.0) 03/18/17 04:30 MCV 86.9 fl (80.0-105.0) 03/18/17 04:30 MCH 28.4 pg (25.0-35.0) 03/18/17 04:30 MCHC 32.7 g/dl (31.0-37.0) 03/18/17 04:30 RDW 15.6 % (11.5-14.5) H 03/18/17 04:30 Plt Count 247 10^3/uL (120.0-450.0) 03/18/17 04:30 MPV 11.1 fl (7.0-11.0) H 03/18/17 04:30 Gran % 34.3 % (50.0-68.0) L 03/18/17 04:30 Lymph % (Auto) 55.5 % (22.0-35.0) H 03/18/17 04:30 [place] % (Auto) 5.5 % (1.0-6.0) 03/18/17 04:30 Eos % (Auto) 4.0 % (1.5-5.0) 03/18/17 04:30 Baso % (Auto) 0.7 % (0.0-3.0) 03/18/17 04:30 Gran # 1.55 (1.4-6.5) 03/18/17 04:30 Lymph # 2.5 (1.2-3.4) 03/18/17 04:30 [place] # 0.3 (0.1-0.6) 03/18/17 04:30 Eos # 0.2 (0.0-0.7) 03/18/17 04:30 Baso # 0.03 K/mm3 (0.0-2.0) 03/18/17 04:30 D-Dimer, Quantitative 0.95 mg/L FEU (0-0.50) H 03/17/17 17:55 Sodium 143 mmol/L (132-148) 03/18/17 04:30 Potassium 3.6 mmol/L (3.6-5.0) 03/18/17 04:30 Chloride 105 mmol/L (95-110) 03/18/17 04:30 Carbon Dioxide 28 mmol/L (21-33) 03/18/17 04:30 Anion Gap 14 (10-20) 03/18/17 04:30 BUN 16 mg/dL (7-21) 03/18/17 04:30 Creatinine 0.8 mg/dL (0.5-1.4) 03/18/17 04:30 Est GFR ( Amer) > 60 03/18/17 04:30 Est GFR (Non-Af Amer) > 60 03/18/17 04:30 Random Glucose 82 mg/dL (70-110) 03/18/17 04:30 Calcium 9.9 mg/dL (8.4-10.5) 03/18/17 04:30 Total Bilirubin 0.6 mg/dL (0.2-1.3) 03/18/17 04:30 AST 29 U/L (14-36) 03/18/17 04:30 ALT 25 U/L (7-56) 03/18/17 04:30 Alkaline Phosphatase 106 U/L (38-126) 03/18/17 04:30 Lactate Dehydrogenase 460 U/L (333-699) 03/18/17 00:30 Total Creatine Kinase 76 U/L (35-230) 03/18/17 00:30 Troponin I < 0.01 ng/mL 03/18/17 00:30 Total Protein 7.7 g/dL (5.8-8.3) 03/18/17 04:30 Albumin 4.0 g/dL (3.0-4.8) 03/18/17 04:30 Globulin 3.7 gm/dL 03/18/17 04:30 Albumin/Globulin Ratio 1.1 (1.1-1.8) 03/18/17 04:30 Urine Color Yellow (YELLOW) 03/17/17 11:44 Urine Appearance Sl cloudy (CLEAR) 03/17/17 11:44 Urine pH 5.5 (4.7-8.0) 03/17/17 11:44 Ur Specific [place] >= 1.030 (1.005-1.035) 03/17/17 11:44 Urine Protein Negative mg/dL (<30 mg/dL) 03/17/17 11:44 Urine Glucose (UA) Negative mg/dL (NEGATIVE) 03/17/17 11:44 Urine Ketones Negative mg/dL (NEGATIVE) 03/17/17 11:44 Urine Blood Large (NEGATIVE) H 03/17/17 11:44 Urine Nitrate Negative (NEGATIVE) 03/17/17 11:44 Urine Bilirubin Negative (NEGATIVE) 03/17/17 11:44 Urine Urobilinogen 0.2 E.U./dL (<1 E.U./dL) 03/17/17 11:44 Ur Leukocyte Esterase Negative Dominick/uL (NEGATIVE) 03/17/17 11:44 Urine RBC Tntc /hpf (0-2) 03/17/17 11:44 Urine WBC 0 - 2 /hpf (0-6) 03/17/17 11:44 Ur Epithelial Cells 4 - 5 /hpf (0-5) 03/17/17 11:44 Urine Bacteria Trace (NEG) 03/17/17 11:44 Attending/Attestation - Attestation I have personally seen and examined this patient.: Yes I have fully participated in the care of the patient.: Yes I have reviewed all pertinent clinical information, including history, physical exam and plan: Yes Notes (Text): 03/20/17 13:57 Patient was seen and examined with medical biller/coder. 57 yo female with PMH of CAD, sp NSEMI followed by RCA and circumflex A stenting 2016, HTN, kidney stones, and GERD is admitted with chest pain, has chest wall tenderness, EKG showed old lateral wall IA, no acute ischemic changes.Patient was monitored in telemetry, serial troponins are normal. CT angio chest is negative for Pulmonary embolism Venous Doppler is negative for DVT. Echo showed normal systolic function. Cardiology evaluation is appreciated.No further inpatient work up is recommended.Patient will be discharged home and will follow up with PMD and cardiology. Management plan was discussed in detail with patient Education was provided.
--- NOTE | 2017-03-19 23:22 | CARD ---
APPROVED REPORT EKG Measurement Heart [id number] <Conclusion> Sinus bradycardia Voltage criteria for left ventricular hypertrophy Cannot rule out Septal infarct, age undetermined Lateral infarct, age undetermined Abnormal ECG
== END 2017-03-19 16:22 | disposition home or self-care (01) ==
LOC: ED 11:03 → ERH 13:46 → 2RNO 16:52
PROVIDERS: ADMIT Hospitalist; ATTEND Internal Medicine
DX: R07.89 Other chest pain (principal); N20.0 Calculus of kidney; I10 Essential (primary) hypertension; I77.810 Thoracic aortic ectasia; I25.10 Atherosclerotic heart disease of native coronary artery without angina pectoris; K21.9 Gastro-esophageal reflux disease without esophagitis; Z95.5 Presence of coronary angioplasty implant and graft
CPT/HCPCS: 36415; 71010; 71275; 74176; 80053; 81001; 82550; 83615; 84484; 85025; 85027; 85378; 93005; 93306; 93970; 99285; G0378; J1650; Q9967